=== PATIENT | male | born 1960 | race Hispanic/Latino ===

== ENCOUNTER → 2017-07-14 | Outpatient (CLI) | payer MEDICARE, OTHER ==
[~2017-07-14] MED LIST: ASPI-891 PO; CARV3.12 PO; CLOP75TA14 PO; GABA-531 PO; HYDR-4153 PO; LEVO150T11 PO; LISI-613 PO; OMEG300C3 PO; ROSU10TA PO
== END | disposition home or self-care (01) ==
LOC: SHCH 10:25
PROVIDERS: ATTEND Internal Medicine Cardiovascular Disease
DX: I73.9 Peripheral vascular disease, unspecified (principal)
CPT/HCPCS: 93925

== ENCOUNTER → 2018-04-06 | Outpatient (CLI) | payer OTHER | END | disposition home or self-care (01) | LOC: SHCH 09:47 | PROVIDERS: ATTEND Internal Medicine Cardiovascular Disease | DX: R09.89 Other specified symptoms and signs involving the circulatory and respiratory systems (principal); Z72.89 Other problems related to lifestyle | CPT/HCPCS: 93880 ==

== ENCOUNTER → 2018-12-21 | Outpatient (CLI) | payer OTHER ==
[~2018-12-21] MED LIST changes: -ROSU10TA PO; +ROSU10TA22 PO
== END | disposition home or self-care (01) ==
LOC: SHCH 16:12
PROVIDERS: ATTEND Internal Medicine Cardiovascular Disease
DX: I11.9 Hypertensive heart disease without heart failure (principal); I08.0 Rheumatic disorders of both mitral and aortic valves
CPT/HCPCS: 93306

== ENCOUNTER → 2019-07-23 | Outpatient (CLI) | payer OTHER, MEDICARE | END | disposition home or self-care (01) | LOC: OIH 10:30 | PROVIDERS: ATTEND Internal Medicine | DX: M19.071 Primary osteoarthritis, right ankle and foot (principal); M19.072 Primary osteoarthritis, left ankle and foot; M19.041 Primary osteoarthritis, right hand; M19.042 Primary osteoarthritis, left hand; M20.12 Hallux valgus (acquired), left foot; M20.11 Hallux valgus (acquired), right foot; M20.42 Other hammer toe(s) (acquired), left foot; M20.41 Other hammer toe(s) (acquired), right foot | CPT/HCPCS: 73130; 73630 ==

== ENCOUNTER → 2019-10-08 | Outpatient (CLI) | payer OTHER, MEDICARE | END | disposition home or self-care (01) | LOC: RAH 11:11 | PROVIDERS: ATTEND Internal Medicine Cardiovascular Disease | DX: R22.32 Localized swelling, mass and lump, left upper limb (principal); Z95.0 Presence of cardiac pacemaker | CPT/HCPCS: 93971 ==

== ENCOUNTER 2019-10-10 13:03 | Inpatient (IN) | payer OTHER, MEDICARE ==
[~2019-10-10] VITALS: Ht 170.2 cm; Wt 85.1 kg
[2019-10-10 13:40] LABS: BASOPHILS % (AUTO) 0.2 % (0.0-5.0); EOSINOPHILS % (AUTO) 0.4 % (0.0-8.0); HEMATOCRIT 30.7 % (42-54); LYMPHOCYTES % (AUTO) 3.4 % (21.0-51.0); MEAN CORPUSCULAR HEMOGLOBIN 33.1 pg (27.0-33.0); MEAN CORPUSCULAR HGB CONC 35.2 g/dL (32.0-36.0); MEAN CORPUSCULAR VOLUME 94.2 fL (79-99); MONOCYTES % (AUTO) 10.7 % (3.0-13.0); NEUTROPHILS % (AUTO) 84.7 % (40.0-77.0); PLATELET COUNT (AUTO) 163 K/uL (130-400); RED BLOOD CELL COUNT(AUTO) 3.26 MIL/uL (4.50-6.20); RED CELL DISTRIBUTION WIDTH 16.3 % (11.0-15.5); WHITE BLOOD COUNT (AUTO) 16.4 K/uL (4.8-10.8)
[2019-10-10 13:47] LABS: INR 1.08 (0.85-1.15); PARTIAL THROMBOPLASTIN TIME 54.2 SEC (26.3-35.5); PROTHROMBIN TIME 11.6 SEC (9.6-11.6)
[2019-10-10 13:53] LABS: CREATININE 1.5 mg/dL (0.5-1.5); POTASSIUM 3.3 mmol/L (3.5-5.1)
[2019-10-10 14:05] LABS: BILIRUBIN,TOTAL 0.6 mg/dL (0.2-1.0)
[2019-10-10 14:08] LABS: ALBUMIN 2.2 g/dL (3.5-5.0)
[2019-10-10] MEDS ORDERED: CEFTRIAXONE SODIUM 2 GM VIAL ONE (14:28)
[2019-10-10 14:59] LABS: RAPID GROUP A STREP NEGATIVE (NEGATIVE)
[2019-10-10 15:38] LABS: APPEARANCE,URINE Clear (CLEAR); BILIRUBIN,URINE Negative (NEGATIVE); COLOR,URINE Yellow (YELLOW); GLUCOSE, URINE (UA) Negative (NEGATIVE); KETONES,URINE Negative (NEGATIVE); LEUKOCYTE ESTERASE ,URINE Negative (NEGATIVE); NITRATE,URINE Negative (NEGATIVE); OCCULT BLOOD,URINE Trace (NEGATIVE); PROTEIN,URINE Trace mg/dL (NEGATIVE)
[2019-10-10 15:55] LABS: BACTERIA,URINE Rare /HPF (None Seen); MUCUS,URINE Few LPF (None Seen); SQUAMOUS EPITHELIAL CELL,UR Few /HPF (0-2); WBC,URINE 0-1 /HPF (0-1)
[2019-10-10] MEDS ORDERED: ACETAMINOPHEN EXTRA STRENGTH 500 MG TABLET ONE (18:39)
[2019-10-10] MEDS ORDERED: METRONIDAZOLE 500MG/100ML BAG 100 ML ONE (18:39)
[2019-10-10] MEDS ORDERED: ACETAMINOPHEN 325 MG TAB PO PRN (20:00)
[2019-10-10] MEDS ORDERED: ONDANSETRON HCL 4 MG/2 ML VIAL IVP PRN (20:00)
[2019-10-11] MEDS ORDERED: ZOLPIDEM TARTRATE 5 MG TAB ONE (01:38)
[2019-10-11 02:35] VITALS: BP 115/71
--- NOTE | 2019-10-11 03:25 | NUR ---
NOTE 0258 PATIENT IS HAVING PAIN ON BACK, CRAMPING ON ABDOMEN, AND PAIN ON LEFT ARM AND SHOULDER FROM A FALL 2 WEEKS AGO. PAIN BECOMES SEVERE WITH ANY MOVEMENT. PAGED BENCHMARK FELT CHECKER. RADHA GONZALES COSMETIC MANAGER TO RETURN CALL PER ANSWERING SERVICE. 0325 CONTACTED ANSWERING SERVICE NO CALL BACK RECEIVED. 0335 RECEIVED CALL FROM Jordi GONZALES COSMETIC MANAGER INFORMED OF ABOVE. ORDERS RECEIVED FOR MORPHINE 2MG IV Q4HRS PRN X3 DOSES. INFORMED PATIENT OF NEW ORDERS.
[2019-10-11] MEDS: MORPHINE SULFATE 2 MG/ML 1ML SYG IVP PRN (03:43)
[2019-10-11 04:16] VITALS: BP 101/65
--- NOTE | 2019-10-11 07:00 | NUR ---
NOTE 0606 PAGED BENCHMARK ONCALL VIA ANSWERING SERVICE TO NOTIFY OF BLOOD CULTURE RESULTS AND PATIENT'S RECURRING PAIN. 0635 NO CALL BACK YET. CONTACTED ANSWERING SERVICE. RADHA GONZALES LOBSTER CATCHER SENIOR EDITOR WILL BE PAGED AGAIN. 0700 REPORT GIVEN TO DAY NURSE PREETI VALERO. NO CALL BACK YET FROM LOBSTER CATCHER.
[2019-10-11] MEDS: LACTATED RINGERS 1000ML 1,000 ML IV SCH ×2 (07:45→16:59)
[2019-10-11 09:15] VITALS: BP 101/66
[2019-10-11] MEDS ORDERED: POTASSIUM CHLORIDE 20 MEQ ERTAB PO ONE (09:49)
[2019-10-11] MEDS: METRONIDAZOLE 500 MG TABLET PO SCH ×3 (09:50→22:46)
[2019-10-11 11:23] VITALS: BP 112/68
[2019-10-11] MEDS ORDERED: VANCOMYCIN PROTOCOL PER PHARMACY IV SCH (13:15)
[2019-10-11] MEDS ORDERED: COMPOUND IV REFRIGERATED 1 EACH IVSOLN MISC PRN (13:30)
[2019-10-11] MEDS ORDERED: VANCOMYCIN 1.25 GM in SODIUM CHLORIDE 0.9% 250 ML IV SCH (14:00)
--- NOTE | 2019-10-11 14:23 | NUR ---
DCP CM met with pt discussed dc plans. Pt is independent prior to admission, lives at home alone, sister Keyana Oswald [phone] lives close by. Pt has a cane, provider 4hrs/day. Denies any other equipments/services. Feels safe to go back home, sister able to assist with transportation and needs as necessary. DC plan to home once stable. CM to cont to followup. Addendum: 10/11/19 at 1427 by LEONIDAS AMARAL LVN CM Amended: Links added.
[2019-10-11] MEDS ORDERED: LEVOFLOXACIN 500 MG/D5W 100 ML 100 ML IV SCH (14:30)
[2019-10-11] MEDS ORDERED: LACTULOSE 20 GM/30 ML UDCUP PO PRN (14:30)
[2019-10-11] MEDS ORDERED: GLUCAGON 1MG KIT 1 MG ML IM PRN (15:30)
[2019-10-11] MEDS ORDERED: MAGNESIUM 2GM PREMIX 50ML 50 ML IV PRN (15:30)
[2019-10-11] MEDS ORDERED: LIDOCAINE HCL-MPF 1% 2ML VIAL IV PRN (15:30)
[2019-10-11] MEDS ORDERED: DEXTROSE 50%-WATER 50 ML DISP.SYRIN IV PRN (15:30)
[2019-10-11] MEDS ORDERED: POTASSIUM CHLORIDE 10% ELIXIR 20 MEQ/15 ML UDCUP PO PRN (15:30)
[2019-10-11] MEDS: INSULIN HUMULIN R 100 UNIT/ML 3ML SQ SCH ×2 (16:30→21:00)
[2019-10-11 16:38] VITALS: BP 116/61
[2019-10-11] MEDS ORDERED: LEVO100 PO (18:16)
[2019-10-11] MEDS ORDERED: CLOP75TA32 PO (18:16)
[2019-10-11] MEDS ORDERED: POTA10TA19 PO (18:16)
[2019-10-11] MEDS ORDERED: APIX5TAB PO (18:16)
[2019-10-11] MEDS ORDERED: VERA240C3 PO (18:16)
[2019-10-11] MEDS ORDERED: FURO40TA5 PO (18:16)
[2019-10-11] MEDS ORDERED: AMIO200T6 PO (18:16)
[2019-10-11] MEDS ORDERED: FAMO40TA7 PO (18:16)
[2019-10-11 19:00] VITALS: BP 116/62
[2019-10-11] MEDS ORDERED: HYDRALAZINE HCL 25 MG TABLET PO SCH (21:00)
[2019-10-11] MEDS ORDERED: CARVEDILOL 3.125 MG TABLET PO SCH (21:00)
[2019-10-11] MEDS ORDERED: LISINOPRIL 20 MG TABLET PO SCH (21:00)
[2019-10-11] MEDS ORDERED: GABAPENTIN 300 MG CAPSULE PO SCH (21:00)
[2019-10-11] MEDS ORDERED: ATORVASTATIN CALCIUM 20 MG TABLET PO SCH (21:00)
[2019-10-11] MEDS ORDERED: METRONIDAZOLE 500 MG TABLET PO SCH (21:00)
[2019-10-11] MEDS: ZOLPIDEM TARTRATE 5 MG TAB PO PRN (22:46)
[2019-10-11] MEDS: FAMOTIDINE 20MG TAB 20 MG TAB PO SCH (22:46)
[2019-10-11] MEDS: APIXABAN 5 MG TABLET PO SCH (22:47)
[2019-10-12] VITALS: BP 135/73
[2019-10-12 04:00] VITALS: BP 149/70
[2019-10-12] MEDS ORDERED: ACETAMINOPHEN 325 MG TAB ONE (04:01)
[2019-10-12] MEDS: ACETAMINOPHEN 325 MG TAB PO PRN ×2 (04:21→20:49)
[2019-10-12 04:58] LABS: BASOPHILS % (AUTO) 0.3 % (0.0-5.0); EOSINOPHILS % (AUTO) 0.1 % (0.0-8.0); HEMATOCRIT 29.6 % (42-54); LYMPHOCYTES % (AUTO) 2.6 % (21.0-51.0); MEAN CORPUSCULAR HEMOGLOBIN 32.4 pg (27.0-33.0); MEAN CORPUSCULAR HGB CONC 35.1 g/dL (32.0-36.0); MEAN CORPUSCULAR VOLUME 92.2 fL (79-99); MONOCYTES % (AUTO) 10.2 % (3.0-13.0); NEUTROPHILS % (AUTO) 84.1 % (40.0-77.0); PLATELET COUNT (AUTO) 138 K/uL (130-400); RED BLOOD CELL COUNT(AUTO) 3.21 MIL/uL (4.50-6.20); RED CELL DISTRIBUTION WIDTH 16.3 % (11.0-15.5); WHITE BLOOD COUNT (AUTO) 11.6 K/uL (4.8-10.8)
[2019-10-12 05:25] LABS: ALBUMIN 1.7 g/dL (3.5-5.0); BILIRUBIN,DIRECT 0.2 mg/dL (0.0-0.3); BILIRUBIN,TOTAL 0.5 mg/dL (0.2-1.0); CREATININE 1.1 mg/dL (0.5-1.5); MAGNESIUM 2.1 mg/dL (1.80-2.40); PHOSPHORUS 2.2 mg/dL (2.5-4.9); POTASSIUM 3.4 mmol/L (3.5-5.1); TOTAL PROTEIN, SERUM 5.9 g/dL (6.0-8.3)
[2019-10-12] MEDS ORDERED: LEVOTHYROXINE 150 MCG TABLET PO SCH (06:30)
[2019-10-12] MEDS: LEVOTHYROXINE 100 MCG TABLET PO SCH (07:00)
[2019-10-12 07:30] VITALS: BP 133/71
[2019-10-12] MEDS: INSULIN HUMULIN R 100 UNIT/ML 3ML SQ SCH ×4 (07:30→20:50)
[2019-10-12] MEDS: POTASSIUM CHLORIDE 10 MEQ/TAB.SA PO SCH (08:21)
[2019-10-12] MEDS: CLOPIDOGREL BISULFATE 75 MG TAB PO SCH (08:21)
[2019-10-12] MEDS: FUROSEMIDE 20 MG TABLET PO SCH (08:22)
[2019-10-12] MEDS: AMIODARONE HCL 200 MG TABLET PO SCH (08:22)
[2019-10-12] MEDS: METRONIDAZOLE 500 MG TABLET PO SCH ×3 (08:22→20:50)
[2019-10-12] MEDS: APIXABAN 5 MG TABLET PO SCH ×2 (08:22→20:50)
[2019-10-12] MEDS: PANTOPRAZOLE SODIUM 40 MG TABLET.DR PO SCH (08:22)
[2019-10-12] MEDS: VERAPAMIL HCL 240 MG SRTAB PO SCH (08:22)
[2019-10-12] MEDS ORDERED: CLOPIDOGREL BISULFATE 75 MG TAB PO SCH (09:00)
[2019-10-12] MEDS ORDERED: FISH OIL 1000 MG/CAP PO SCH (09:00)
[2019-10-12] MEDS ORDERED: ASPIRIN 325MG EC TAB 325 MG TABLET.DR PO SCH (09:00)
[2019-10-12] MEDS ORDERED: NAFCILLIN 2GM+ NS 100ML IV SCH (12:15)
[2019-10-12 12:28] VITALS: BP 108/66
[2019-10-12] MEDS: NAFCILLIN 2GM+ NS 100ML 100 ML IV SCH ×3 (13:44→20:50)
[2019-10-12] MEDS: POTASSIUM CHLORIDE 20 MEQ ERTAB PO PRN ×2 (15:29→17:05)
[2019-10-12 16:00] VITALS: BP 103/57
--- NOTE | 2019-10-12 16:31 | NUR ---
1513 received oral consent for IM Letter since patient is on contact/droplet isolation. I faxed IM Letter to [phone] and placed in chart under consent tab.
[2019-10-12 19:32] VITALS: BP 107/86
[2019-10-12] MEDS: ZOLPIDEM TARTRATE 5 MG TAB PO PRN (20:48)
[2019-10-12] MEDS: FAMOTIDINE 20MG TAB 20 MG TAB PO SCH (20:50)
[2019-10-13] VITALS (7 sets, daily range): BP systolic 102–144; BP diastolic 61–79
[2019-10-13] MEDS: NAFCILLIN 2GM+ NS 100ML 100 ML IV SCH ×7 (00:08→23:47)
[2019-10-13 05:14] LABS: HEMATOCRIT 33.3 % (42-54); MEAN CORPUSCULAR HEMOGLOBIN 32.9 pg (27.0-33.0); MEAN CORPUSCULAR HGB CONC 33.9 g/dL (32.0-36.0); MEAN CORPUSCULAR VOLUME 97.1 fL (79-99); RED BLOOD CELL COUNT(AUTO) 3.43 MIL/uL (4.50-6.20); RED CELL DISTRIBUTION WIDTH 17.1 % (11.0-15.5); WHITE BLOOD COUNT (AUTO) 15.1 K/uL (4.8-10.8)
[2019-10-13 05:35] LABS: POTASSIUM 4.2 mmol/L (3.5-5.1)
[2019-10-13] MEDS: INSULIN HUMULIN R 100 UNIT/ML 3ML SQ SCH ×4 (07:08→21:00)
[2019-10-13] MEDS: AMIODARONE HCL 200 MG TABLET PO SCH (09:40)
[2019-10-13] MEDS: APIXABAN 5 MG TABLET PO SCH ×2 (09:41→21:14)
[2019-10-13] MEDS: VERAPAMIL HCL 240 MG SRTAB PO SCH (09:41)
[2019-10-13] MEDS: LEVOTHYROXINE 100 MCG TABLET PO SCH (09:41)
[2019-10-13] MEDS: FUROSEMIDE 20 MG TABLET PO SCH (09:41)
[2019-10-13] MEDS: POTASSIUM CHLORIDE 10 MEQ/TAB.SA PO SCH (09:41)
[2019-10-13] MEDS: CLOPIDOGREL BISULFATE 75 MG TAB PO SCH (09:42)
[2019-10-13] MEDS: METRONIDAZOLE 500 MG TABLET PO SCH ×3 (09:42→21:14)
[2019-10-13] MEDS: PANTOPRAZOLE SODIUM 40 MG TABLET.DR PO SCH (09:42)
[2019-10-13 13:52] LABS: INR 1.09 (0.85-1.15); PROTHROMBIN TIME 11.7 SEC (9.6-11.6)
[2019-10-13] MEDS: ZOLPIDEM TARTRATE 5 MG TAB PO PRN (21:14)
[2019-10-13] MEDS: FAMOTIDINE 20MG TAB 20 MG TAB PO SCH (21:15)
[2019-10-13] MEDS: ACETAMINOPHEN 325 MG TAB PO PRN (21:15)
[2019-10-14 03:39] VITALS: BP 172/88
[2019-10-14] MEDS: NAFCILLIN 2GM+ NS 100ML 100 ML IV SCH ×6 (04:26→23:36)
[2019-10-14 06:08] LABS: HEMATOCRIT 28.5 % (42-54); MEAN CORPUSCULAR HEMOGLOBIN 33.1 pg (27.0-33.0); MEAN CORPUSCULAR HGB CONC 35.4 g/dL (32.0-36.0); MEAN CORPUSCULAR VOLUME 93.4 fL (79-99); RED BLOOD CELL COUNT(AUTO) 3.05 MIL/uL (4.50-6.20); RED CELL DISTRIBUTION WIDTH 16.8 % (11.0-15.5); WHITE BLOOD COUNT (AUTO) 14.3 K/uL (4.8-10.8)
[2019-10-14 06:23] LABS: CREATININE 1.1 mg/dL (0.5-1.5); MAGNESIUM 1.8 mg/dL (1.80-2.40); PHOSPHORUS 3.4 mg/dL (2.5-4.9); POTASSIUM 3.3 mmol/L (3.5-5.1)
[2019-10-14] MEDS: INSULIN HUMULIN R 100 UNIT/ML 3ML SQ SCH ×4 (07:30→20:14)
[2019-10-14 08:08] VITALS: BP 162/72
[2019-10-14] MEDS: CLOPIDOGREL BISULFATE 75 MG TAB PO SCH (08:29)
[2019-10-14] MEDS: FUROSEMIDE 20 MG TABLET PO SCH (08:29)
[2019-10-14] MEDS: METRONIDAZOLE 500 MG TABLET PO SCH ×3 (08:30→20:19)
[2019-10-14] MEDS: LEVOTHYROXINE 100 MCG TABLET PO SCH (08:30)
[2019-10-14] MEDS: AMIODARONE HCL 200 MG TABLET PO SCH (08:30)
[2019-10-14] MEDS: VERAPAMIL HCL 240 MG SRTAB PO SCH (08:30)
[2019-10-14] MEDS: POTASSIUM CHLORIDE 10 MEQ/TAB.SA PO SCH (08:30)
[2019-10-14] MEDS: APIXABAN 5 MG TABLET PO SCH ×2 (08:30→20:19)
[2019-10-14] MEDS: PANTOPRAZOLE SODIUM 40 MG TABLET.DR PO SCH (08:30)
[2019-10-14] MEDS ORDERED: PHARMACY COMMUNICATION MISC SCH ×2 (10:45→11:30)
[2019-10-14 10:54] VITALS: BP 146/71
[2019-10-14] MEDS ORDERED: DORZ10DR19 OU (11:20)
[2019-10-14] MEDS ORDERED: SECU150S2 SQ (11:20)
[2019-10-14] MEDS ORDERED: LATA2.5D2 OU (11:20)
[2019-10-14] MEDS: ACETAMINOPHEN 325 MG TAB PO PRN (12:18)
[2019-10-14] MEDS ORDERED: GENTAMICIN PROTOCOL PER PHARMACY IV SCH (12:30)
[2019-10-14] MEDS ORDERED: COMPOUND IV REFRIGERATED 1 EACH IVSOLN MISC PRN (12:30)
[2019-10-14] MEDS ORDERED: SODIUM CHLORIDE 0.9% IV SCH (13:00)
[2019-10-14] MEDS ORDERED: GENTAMICIN SULFATE IV SCH (13:00)
[2019-10-14 16:16] VITALS: BP 146/84
[2019-10-14 19:12] VITALS: BP 127/67
[2019-10-14] MEDS: LATANOPROST 2.5 ML DROPS OU SCH (20:18)
[2019-10-14] MEDS: FAMOTIDINE 20MG TAB 20 MG TAB PO SCH (20:18)
[2019-10-14] MEDS: ZOLPIDEM TARTRATE 5 MG TAB PO PRN (20:22)
[2019-10-14] MEDS: GENTAMICIN SULFATE IV SCH ×2 (23:00→23:23)
[2019-10-14] MEDS: SODIUM CHLORIDE 0.9% IV SCH ×2 (23:00→23:23)
[2019-10-14 23:06] VITALS: BP 137/80
[2019-10-14] MEDS: MORPHINE SULFATE 2 MG/ML 1ML SYG IVP PRN (23:37)
[2019-10-15] MEDS: NAFCILLIN 2GM+ NS 100ML 100 ML IV SCH ×6 (03:05→23:50)
[2019-10-15] MEDS: ACETAMINOPHEN 325 MG TAB PO PRN ×2 (03:05→18:04)
[2019-10-15 03:35] VITALS: BP 130/72
[2019-10-15 04:40] LABS: HEMATOCRIT 27.2 % (42-54); MEAN CORPUSCULAR HEMOGLOBIN 32.3 pg (27.0-33.0); MEAN CORPUSCULAR HGB CONC 34.6 g/dL (32.0-36.0); MEAN CORPUSCULAR VOLUME 93.5 fL (79-99); RED BLOOD CELL COUNT(AUTO) 2.91 MIL/uL (4.50-6.20); RED CELL DISTRIBUTION WIDTH 16.8 % (11.0-15.5); WHITE BLOOD COUNT (AUTO) 14.9 K/uL (4.8-10.8)
[2019-10-15 04:49] LABS: CREATININE 1.3 mg/dL (0.5-1.5); POTASSIUM 3.1 mmol/L (3.5-5.1)
[2019-10-15] MEDS: POTASSIUM CHLORIDE 20MEQ/100ML 100 ML IV PRN (05:08)
[2019-10-15] MEDS: LEVOTHYROXINE 100 MCG TABLET PO SCH (05:08)
[2019-10-15] MEDS: INSULIN HUMULIN R 100 UNIT/ML 3ML SQ SCH ×4 (05:28→20:15)
[2019-10-15] MEDS: GENTAMICIN SULFATE IV SCH ×3 (06:41→23:04)
[2019-10-15] MEDS: SODIUM CHLORIDE 0.9% IV SCH ×3 (06:41→23:04)
[2019-10-15 08:00] VITALS: BP 136/87
[2019-10-15] MEDS: DORZOLAMIDE HCL 2% 10ML DROPS OU SCH (08:15)
[2019-10-15] MEDS: MORPHINE SULFATE 2 MG/ML 1ML SYG IVP PRN (08:15)
[2019-10-15] MEDS: FUROSEMIDE 20 MG TABLET PO SCH (08:16)
[2019-10-15] MEDS: APIXABAN 5 MG TABLET PO SCH ×2 (08:16→19:23)
[2019-10-15] MEDS: VERAPAMIL HCL 240 MG SRTAB PO SCH (08:16)
[2019-10-15] MEDS: AMIODARONE HCL 200 MG TABLET PO SCH (08:16)
[2019-10-15] MEDS: PANTOPRAZOLE SODIUM 40 MG TABLET.DR PO SCH (08:16)
[2019-10-15] MEDS: POTASSIUM CHLORIDE 10 MEQ/TAB.SA PO SCH (08:17)
[2019-10-15] MEDS: CLOPIDOGREL BISULFATE 75 MG TAB PO SCH (08:17)
[2019-10-15] MEDS: POTASSIUM CHLORIDE 20 MEQ ERTAB PO PRN (08:19)
[2019-10-15] MEDS: METRONIDAZOLE 500 MG TABLET PO SCH ×3 (08:19→19:23)
[2019-10-15 12:00] VITALS: BP 125/78
--- NOTE | 2019-10-15 15:00 | NUR ---
HAD NOTIFIED MARILYN [facility] HERIBERTO DE ASKING ON POSSIBLE REEVALUATION OF PACEMAKER . PER MARILYN will need abx for a while before intervention
[2019-10-15 16:00] VITALS: BP 126/75
--- NOTE | 2019-10-15 17:00 | NUR ---
NOTIFIED HERIBERTO DE ON PATIENT AND SISTER CONCERN FOR CONTINUOUS HEADACHES FOR 4 MONTHS AND REQUESTING POSSIBLE FURTHER EVALUATION . NO NEW ORDER AT THIS TIME ..
[2019-10-15] MEDS: FAMOTIDINE 20MG TAB 20 MG TAB PO SCH (19:22)
[2019-10-15] MEDS: ZOLPIDEM TARTRATE 5 MG TAB PO PRN (19:23)
[2019-10-15] MEDS: LATANOPROST 2.5 ML DROPS OU SCH (19:23)
[2019-10-15 20:12] VITALS: BP 138/60
[2019-10-15] MEDS ORDERED: DIPHENHYDRAMINE HCL 25 MG CAPSULE PO PRN (21:00)
[2019-10-16 00:16] VITALS: BP 166/78
[2019-10-16] MEDS: NAFCILLIN 2GM+ NS 100ML 100 ML IV SCH ×5 (03:43→20:39)
[2019-10-16 04:16] VITALS: BP 152/77
[2019-10-16] MEDS: INSULIN HUMULIN R 100 UNIT/ML 3ML SQ SCH ×4 (06:23→20:40)
[2019-10-16 06:25] LABS: HEMATOCRIT 26.9 % (42-54); MEAN CORPUSCULAR HEMOGLOBIN 32.1 pg (27.0-33.0); MEAN CORPUSCULAR HGB CONC 34.2 g/dL (32.0-36.0); MEAN CORPUSCULAR VOLUME 93.7 fL (79-99); RED BLOOD CELL COUNT(AUTO) 2.87 MIL/uL (4.50-6.20); WHITE BLOOD COUNT (AUTO) 14.3 K/uL (4.8-10.8)
[2019-10-16 06:37] LABS: CREATININE 1.6 mg/dL (0.5-1.5); MAGNESIUM 1.7 mg/dL (1.80-2.40); PHOSPHORUS 3.2 mg/dL (2.5-4.9)
--- NOTE | 2019-10-16 07:32 | NUR ---
SPOKE WITH NOLA FROM PHARMACY NEEDING 0700 DOSE OF GARAMYCIN . WILL DELIVER SOON .
[2019-10-16] MEDS: SODIUM CHLORIDE 0.9% IV SCH ×3 (07:51→23:08)
[2019-10-16] MEDS: GENTAMICIN SULFATE IV SCH ×3 (07:51→23:08)
[2019-10-16 08:00] VITALS: BP 120/80
[2019-10-16] MEDS: DORZOLAMIDE HCL 2% 10ML DROPS OU SCH (09:00)
[2019-10-16] MEDS: POTASSIUM CHLORIDE 10 MEQ/TAB.SA PO SCH (09:08)
[2019-10-16] MEDS: VERAPAMIL HCL 240 MG SRTAB PO SCH (09:08)
[2019-10-16] MEDS: AMIODARONE HCL 200 MG TABLET PO SCH (09:08)
[2019-10-16] MEDS: APIXABAN 5 MG TABLET PO SCH ×2 (09:08→20:40)
[2019-10-16] MEDS: PANTOPRAZOLE SODIUM 40 MG TABLET.DR PO SCH (09:09)
[2019-10-16] MEDS: FUROSEMIDE 20 MG TABLET PO SCH (09:09)
[2019-10-16] MEDS: POTASSIUM CHLORIDE 20 MEQ ERTAB PO PRN ×3 (09:09→16:55)
[2019-10-16] MEDS: CLOPIDOGREL BISULFATE 75 MG TAB PO SCH (09:09)
[2019-10-16] MEDS: LEVOTHYROXINE 100 MCG TABLET PO SCH (09:10)
[2019-10-16] MEDS: METRONIDAZOLE 500 MG TABLET PO SCH ×3 (09:12→20:40)
[2019-10-16 11:51] VITALS: BP 118/66
[2019-10-16 16:00] VITALS: BP 130/68
--- NOTE | 2019-10-16 16:00 | NUR ---
NOTIFIED DR GROVES REGARDING SPEAKING WITH [facility] AND HER STATING THEY WONT DO AN MRI WITH ANY PACEMAKER EVEN IF IT MIGHT BE COMPATIBLE,GANTRY RIGGER WHO PLACED IT WILL HAVE TO FILL OUT AN APPROVAL FORM ,A CONSENT PACEMAKER REP AND A NURSE WILL NEED TO BE PRESENT .NO NEW ORDERS AT THIS TIME .ALSO NOTIFIED CHARGE NURSE TAMMY ON ISSUE . STATED MRI DEPT WILL NOT DO TEST DUE TO PACEMAKER EVEN IF COMPATIBLE DUE TO RISKS .
[2019-10-16 19:00] VITALS: BP 145/68
[2019-10-16] MEDS: LATANOPROST 2.5 ML DROPS OU SCH (20:39)
[2019-10-16] MEDS: FAMOTIDINE 20MG TAB 20 MG TAB PO SCH (20:39)
[2019-10-16] MEDS: ZOLPIDEM TARTRATE 5 MG TAB PO PRN (21:07)
[2019-10-16] MEDS ORDERED: CHLORDIAZEPOXIDE HCL 25 MG CAP PO ONE (22:00)
[2019-10-16] MEDS ORDERED: PHARMACY COMMUNICATION MISC PRN (22:00)
[2019-10-16] MEDS ORDERED: LORAZEPAM 2 MG/ML 1 ML VIAL IVP PRN (22:00)
[2019-10-16] MEDS ORDERED: CHLORDIAZEPOXIDE HCL 25 MG CAP PO PRN (22:00)
[2019-10-16] MEDS: NICOTINE 21 MG/ 24 HR PATCH TD SCH (22:49)
[2019-10-17] VITALS (7 sets, daily range): BP systolic 122–156; BP diastolic 62–98
[2019-10-17] MEDS: NAFCILLIN 2GM+ NS 100ML 100 ML IV SCH ×7 (01:07→23:06)
[2019-10-17] MEDS: POTASSIUM CHLORIDE 20 MEQ ERTAB PO PRN ×5 (06:24→16:47)
[2019-10-17] MEDS: LEVOTHYROXINE 100 MCG TABLET PO SCH (06:24)
[2019-10-17] MEDS: INSULIN HUMULIN R 100 UNIT/ML 3ML SQ SCH ×4 (06:25→20:51)
[2019-10-17] MEDS: SODIUM CHLORIDE 0.9% IV SCH ×3 (06:25→23:05)
[2019-10-17] MEDS: GENTAMICIN SULFATE IV SCH ×3 (06:25→23:05)
[2019-10-17 06:38] LABS: BASOPHILS % (AUTO) 0.3 % (0.0-5.0); EOSINOPHILS % (AUTO) 4.7 % (0.0-8.0); HEMATOCRIT 25.8 % (42-54); LYMPHOCYTES % (AUTO) 5.5 % (21.0-51.0); MEAN CORPUSCULAR HEMOGLOBIN 32.6 pg (27.0-33.0); MEAN CORPUSCULAR HGB CONC 34.1 g/dL (32.0-36.0); MEAN CORPUSCULAR VOLUME 95.6 fL (79-99); MONOCYTES % (AUTO) 8.6 % (3.0-13.0); NEUTROPHILS % (AUTO) 78.9 % (40.0-77.0); PLATELET COUNT (AUTO) 398 K/uL (130-400); RED CELL DISTRIBUTION WIDTH 17.3 % (11.0-15.5); WHITE BLOOD COUNT (AUTO) 14.7 K/uL (4.8-10.8)
[2019-10-17 07:00] LABS: ALBUMIN 1.4 g/dL (3.5-5.0); BILIRUBIN,TOTAL 0.7 mg/dL (0.2-1.0); CREATININE 1.4 mg/dL (0.5-1.5); THYROID STIMULATING HORMONE 1.89 uIU/mL (0.36-3.74); TOTAL PROTEIN, SERUM 5.7 g/dL (6.0-8.3)
[2019-10-17 07:02] LABS: B-TYPE NATRIURETIC PEPTIDE 669 pg/mL (0-100)
[2019-10-17] MEDS: METRONIDAZOLE 500 MG TABLET PO SCH ×3 (08:45→20:57)
[2019-10-17] MEDS: APIXABAN 5 MG TABLET PO SCH ×2 (08:45→20:58)
[2019-10-17] MEDS: FUROSEMIDE 20 MG TABLET PO SCH (08:45)
[2019-10-17] MEDS: PANTOPRAZOLE SODIUM 40 MG TABLET.DR PO SCH (08:45)
[2019-10-17] MEDS: VERAPAMIL HCL 240 MG SRTAB PO SCH (08:46)
[2019-10-17] MEDS: DORZOLAMIDE HCL 2% 10ML DROPS OU SCH (08:46)
[2019-10-17] MEDS: CLOPIDOGREL BISULFATE 75 MG TAB PO SCH (08:47)
[2019-10-17] MEDS: AMIODARONE HCL 200 MG TABLET PO SCH (08:47)
[2019-10-17] MEDS: NICOTINE 21 MG/ 24 HR PATCH TD SCH (08:48)
[2019-10-17] MEDS: POTASSIUM CHLORIDE 10 MEQ/TAB.SA PO SCH (09:00)
[2019-10-17] MEDS: FLUTICASONE PROPIONATE 50MCG/SPRAY 16 GM BOTTLE EN SCH (09:00)
[2019-10-17] MEDS: POTASSIUM CHLORIDE 20MEQ/100ML 100 ML IV PRN (09:25)
--- NOTE | 2019-10-17 11:18 | NUR ---
DC TELEVISION NEWS PHOTOGRAPHER [facility] FOR [facility] CALLED SAID PATIENT IS ACCEPTED. LET NURSE KNOW. SAID THAT BENCHMARK STILL DEBATING RE CONSULTING CARDIO FOR POSSIBLE PACEMAKER REMOVAL. Addendum: 10/17/19 at 1121 by SHANDA HERCULES RN CM Amended: Links added.
[2019-10-17] MEDS ORDERED: LIDOCAINE HCL MPF 1% 5ML VIAL ONE (15:15)
--- NOTE | 2019-10-17 15:45 | NUR ---
YOGESH FOX SPOKE TO YOGESH FOX FOR DR. TERESITA DE JESUS. INFORMED HIM THAT DR. CRUZ WANTS TO RECONSULT WITH CARDIOLOGY FOR PACEMAKER REMOVAL BECAUSE OF PERSISTENT BACTEREMIA. INFORMED YOGESH FOX OF BLOOD CULTURE RESULTS FROM 10/10/19, 10/13/19, AND 10/16/19.
[2019-10-17] MEDS: METHYLPREDNISOLONE SOD SUCC 125MG/2ML VIAL IVP SCH ×2 (16:46→23:05)
[2019-10-17] MEDS: ACETAMINOPHEN 325 MG TAB PO PRN (17:11)
--- NOTE | 2019-10-17 17:15 | NUR ---
DR. LAMONTE WOOD HERE TO SEE PATIENT. PERFORMED BEDSIDE RIGHT KNEE ASPIRATION. ASPIRATED APPROXIMATELY 8 ML OF SEROSANGUINEOUS FLUID AND SENT TO LAB FOR TESTING.
[2019-10-17] MEDS: FAMOTIDINE 20MG TAB 20 MG TAB PO SCH (20:57)
[2019-10-17] MEDS ORDERED: ZINC OXIDE OINT 60GM TUBE TP SCH (21:00)
[2019-10-17] MEDS: ZOLPIDEM TARTRATE 5 MG TAB PO PRN (21:06)
[2019-10-17] MEDS: LATANOPROST 2.5 ML DROPS OU SCH (21:07)
[2019-10-18 00:39] LABS: APPEARANCE BODY FLUID BLOODY (CLEAR); COLOR,BODY FLUID RED (LT YELLOW); SPECIMENTYPE,BODY FLUID SYNOVIAL; TOTAL VOLUME,BODY FLUID 10 mL
[2019-10-18 00:41] LABS: BODY FLUID WBC 3247 /cu. mm.
[2019-10-18 00:42] LABS: BODY FLUID RBC 15048 /cu. mm.
[2019-10-18 00:43] LABS: BF BASOPHIL 0 %; BF EOSINOPHIL 0 %; BF LYMPHOCYTE 10 %; BF MONOCYTE 0 %
[2019-10-18 03:32] VITALS: BP 156/87
[2019-10-18] MEDS: NAFCILLIN 2GM+ NS 100ML 100 ML IV SCH ×6 (04:37→23:41)
[2019-10-18] MEDS: GENTAMICIN SULFATE IV SCH ×2 (05:48→23:41)
[2019-10-18] MEDS: METHYLPREDNISOLONE SOD SUCC 125MG/2ML VIAL IVP SCH ×3 (05:48→23:40)
[2019-10-18] MEDS: LEVOTHYROXINE 100 MCG TABLET PO SCH (05:48)
[2019-10-18] MEDS: INSULIN HUMULIN R 100 UNIT/ML 3ML SQ SCH ×4 (05:48→20:36)
[2019-10-18] MEDS: SODIUM CHLORIDE 0.9% IV SCH ×2 (05:48→23:41)
[2019-10-18 06:29] LABS: HEMATOCRIT 28.8 % (42-54); MEAN CORPUSCULAR HEMOGLOBIN 32.7 pg (27.0-33.0); RED CELL DISTRIBUTION WIDTH 17.4 % (11.0-15.5)
[2019-10-18 06:43] LABS: CREATININE 1.5 mg/dL (0.5-1.5); MAGNESIUM 2.1 mg/dL (1.80-2.40); PHOSPHORUS 3.9 mg/dL (2.5-4.9); POTASSIUM 3.8 mmol/L (3.5-5.1)
[2019-10-18 07:06] LABS: THYROID STIMULATING HORMONE 1.13 uIU/mL (0.36-3.74)
[2019-10-18 07:47] VITALS: BP 139/88
[2019-10-18] MEDS: FLUTICASONE PROPIONATE 50MCG/SPRAY 16 GM BOTTLE EN SCH (09:00)
[2019-10-18] MEDS: METRONIDAZOLE 500 MG TABLET PO SCH ×3 (09:27→20:30)
[2019-10-18] MEDS: APIXABAN 5 MG TABLET PO SCH ×2 (09:27→20:30)
[2019-10-18] MEDS: CLOPIDOGREL BISULFATE 75 MG TAB PO SCH (09:27)
[2019-10-18] MEDS: FUROSEMIDE 20 MG TABLET PO SCH (09:28)
[2019-10-18] MEDS: POTASSIUM CHLORIDE 10 MEQ/TAB.SA PO SCH (09:28)
[2019-10-18] MEDS: AMIODARONE HCL 200 MG TABLET PO SCH (09:28)
[2019-10-18] MEDS: VERAPAMIL HCL 240 MG SRTAB PO SCH (09:29)
[2019-10-18] MEDS: NICOTINE 21 MG/ 24 HR PATCH TD SCH (09:29)
[2019-10-18] MEDS: PANTOPRAZOLE SODIUM 40 MG TABLET.DR PO SCH (09:29)
[2019-10-18 09:54] LABS: CRYSTALS, SYNOVIAL FLUID SEE SEPARATE REPORT
[2019-10-18] MEDS: DORZOLAMIDE HCL 2% 10ML DROPS OU SCH (10:52)
[2019-10-18 11:32] VITALS: BP 137/89
--- NOTE | 2019-10-18 15:11 | NUR ---
RD SCREEN - LOS X 8 Pt admitted with Diarrhea - resolved. Pt tolerating Heart Healthy diet order, however Pt reports decreased appetite due to inactivity and meals too close together, i.e. still full from breakfast at lunch time. This leads to poor PO at following meals and Pt not hungry later in day. Noted serum BG 248. Recommend add 75gm CC diet modification Recommend 6 small meals diet modification Recommend 30mL ProMod TID RD to continue to monitor. Please notify as additional nutrition concerns arise. Thank you. Addendum: 10/18/19 at [address] RD Amended: Links added.
[2019-10-18 16:40] VITALS: BP 138/71
--- NOTE | 2019-10-18 17:00 | NUR ---
DR. LASHAWN WOOD HERE TO SEE PATIENT. TOLD PATIENT WOULD TALK TO MRI DIRECTOR IN ORDER FOR LEFT ARM MRI TO BE PERFORMED. TOLD PATIENT THAT AN MRI IS ABLE TO BE DONE WITH TYPE OF PACEMAKER PATIENT HAS.
[2019-10-18 19:23] VITALS: BP 122/64
[2019-10-18] MEDS: ZOLPIDEM TARTRATE 5 MG TAB PO PRN (20:29)
[2019-10-18] MEDS: FAMOTIDINE 20MG TAB 20 MG TAB PO SCH (20:30)
[2019-10-18] MEDS: LATANOPROST 2.5 ML DROPS OU SCH (20:36)
[2019-10-18 23:27] VITALS: BP 149/76
[2019-10-19] MEDS: NAFCILLIN 2GM+ NS 100ML 100 ML IV SCH ×6 (03:52→23:54)
[2019-10-19 04:00] VITALS: BP 141/77
[2019-10-19] MEDS: LEVOTHYROXINE 100 MCG TABLET PO SCH (06:02)
[2019-10-19] MEDS: GENTAMICIN SULFATE IV SCH ×3 (06:03→20:27)
[2019-10-19] MEDS: METHYLPREDNISOLONE SOD SUCC 125MG/2ML VIAL IVP SCH ×3 (06:03→23:28)
[2019-10-19] MEDS: SODIUM CHLORIDE 0.9% IV SCH ×3 (06:03→20:27)
[2019-10-19] MEDS: INSULIN HUMULIN R 100 UNIT/ML 3ML SQ SCH ×4 (06:06→20:36)
[2019-10-19 08:00] VITALS: BP 127/71
[2019-10-19] MEDS: FLUTICASONE PROPIONATE 50MCG/SPRAY 16 GM BOTTLE EN SCH (09:00)
[2019-10-19] MEDS ORDERED: GADODIAMIDE 10 MMOL/20 ML VIAL IV ONE (09:12)
[2019-10-19] MEDS: PANTOPRAZOLE SODIUM 40 MG TABLET.DR PO SCH (09:27)
[2019-10-19] MEDS: METRONIDAZOLE 500 MG TABLET PO SCH ×3 (09:29→20:27)
[2019-10-19] MEDS: CLOPIDOGREL BISULFATE 75 MG TAB PO SCH (09:29)
[2019-10-19] MEDS: NICOTINE 21 MG/ 24 HR PATCH TD SCH (09:29)
[2019-10-19] MEDS: APIXABAN 5 MG TABLET PO SCH ×2 (09:29→20:27)
[2019-10-19] MEDS: FUROSEMIDE 20 MG TABLET PO SCH (09:30)
[2019-10-19] MEDS: AMIODARONE HCL 200 MG TABLET PO SCH (09:30)
[2019-10-19] MEDS: VERAPAMIL HCL 240 MG SRTAB PO SCH (09:30)
[2019-10-19] MEDS: POTASSIUM CHLORIDE 10 MEQ/TAB.SA PO SCH (09:30)
[2019-10-19] MEDS: ACETAMINOPHEN 325 MG TAB PO PRN (09:32)
[2019-10-19] MEDS: DORZOLAMIDE HCL 2% 10ML DROPS OU SCH (09:34)
--- NOTE | 2019-10-19 10:25 | NUR ---
DC PLAN PENDING MRI PLAN TO DC TO [facility]. FORMS IN CHART. Addendum: 10/19/19 at 1026 by SHANDA HERCULES RN CM Amended: Links added.
[2019-10-19 11:00] VITALS: BP 148/94
--- NOTE | 2019-10-19 15:47 | NUR ---
DC PLAN SPOKE TO SERENA GUERRA. SAID WILL BE GOOD TILL TUESDAY. Addendum: 10/19/19 at 1548 by SHANDA HERCULES RN CM Amended: Links added.
[2019-10-19 16:00] VITALS: BP 126/54
[2019-10-19] MEDS: FAMOTIDINE 20MG TAB 20 MG TAB PO SCH (20:27)
[2019-10-19] MEDS: LATANOPROST 2.5 ML DROPS OU SCH (20:28)
[2019-10-19] MEDS: ZOLPIDEM TARTRATE 5 MG TAB PO PRN (20:35)
[2019-10-19 23:57] VITALS: BP 159/84
[2019-10-20 04:00] VITALS: BP 155/80
[2019-10-20] MEDS: NAFCILLIN 2GM+ NS 100ML 100 ML IV SCH ×5 (05:00→20:15)
[2019-10-20] MEDS: LEVOTHYROXINE 100 MCG TABLET PO SCH (05:04)
[2019-10-20 05:25] LABS: HEMATOCRIT 28.6 % (42-54); LYMPHOCYTES % (AUTO) 5.1 % (21.0-51.0); MEAN CORPUSCULAR HEMOGLOBIN 31.7 pg (27.0-33.0); MEAN CORPUSCULAR HGB CONC 33.2 g/dL (32.0-36.0); MEAN CORPUSCULAR VOLUME 95.3 fL (79-99); MONOCYTES % (AUTO) 2.4 % (3.0-13.0); NEUTROPHILS % (AUTO) 91.2 % (40.0-77.0); PLATELET COUNT (AUTO) 575 K/uL (130-400); RED CELL DISTRIBUTION WIDTH 17.2 % (11.0-15.5); WHITE BLOOD COUNT (AUTO) 10.8 K/uL (4.8-10.8)
[2019-10-20 05:35] LABS: ALBUMIN 1.6 g/dL (3.5-5.0); ASPARTATE AMINOTRANSFERASE 13 U/L (10-37); BILIRUBIN,TOTAL 0.4 mg/dL (0.2-1.0); CARBON DIOXIDE 24 mmol/L (21-32); CHLORIDE 102 mmol/L (101-111); CREATININE 1.3 mg/dL (0.5-1.5); GENTAMICIN,TROUGH 3.3 mcg/mL (0.0-2.0); GLOMERULAR FILTR. RATE CALC 60 mL/min (>60); GLUCOSE,RANDOM 143 mg/dL (70-105); POTASSIUM 3.3 mmol/L (3.5-5.1); SODIUM SERUM 137 mmol/L (136-145); TOTAL PROTEIN, SERUM 6.2 g/dL (6.0-8.3)
[2019-10-20 05:54] LABS: B-TYPE NATRIURETIC PEPTIDE 1010 pg/mL (0-100)
[2019-10-20] MEDS: METHYLPREDNISOLONE SOD SUCC 125MG/2ML VIAL IVP SCH ×3 (06:26→23:44)
[2019-10-20] MEDS: POTASSIUM CHLORIDE 20 MEQ ERTAB PO PRN ×3 (06:26→13:39)
[2019-10-20 06:30] LABS: AMMONIA < 10 umol/L (11-32)
[2019-10-20] MEDS: INSULIN HUMULIN R 100 UNIT/ML 3ML SQ SCH ×4 (06:32→20:41)
[2019-10-20 06:33] LABS: ALANINE AMINOTRANSFERASE 9 U/L (12-78); UREA NITROGEN, BLOOD 14 mg/dL (7-18)
[2019-10-20 08:00] VITALS: BP 160/90
[2019-10-20] MEDS: AMIODARONE HCL 200 MG TABLET PO SCH (08:41)
[2019-10-20] MEDS: VERAPAMIL HCL 240 MG SRTAB PO SCH (08:41)
[2019-10-20] MEDS: POTASSIUM CHLORIDE 10 MEQ/TAB.SA PO SCH (08:41)
[2019-10-20] MEDS: PANTOPRAZOLE SODIUM 40 MG TABLET.DR PO SCH (08:42)
[2019-10-20] MEDS: APIXABAN 5 MG TABLET PO SCH ×2 (08:43→20:13)
[2019-10-20] MEDS: FUROSEMIDE 20 MG TABLET PO SCH (08:43)
[2019-10-20] MEDS: CLOPIDOGREL BISULFATE 75 MG TAB PO SCH (08:43)
[2019-10-20] MEDS: METRONIDAZOLE 500 MG TABLET PO SCH ×3 (08:43→20:13)
[2019-10-20] MEDS: NICOTINE 21 MG/ 24 HR PATCH TD SCH (08:44)
[2019-10-20] MEDS: DORZOLAMIDE HCL 2% 10ML DROPS OU SCH (08:44)
[2019-10-20] MEDS: FLUTICASONE PROPIONATE 50MCG/SPRAY 16 GM BOTTLE EN SCH (08:44)
[2019-10-20 11:00] VITALS: BP 136/81
[2019-10-20 16:00] VITALS: BP 160/86
[2019-10-20 20:08] VITALS: BP 174/98
[2019-10-20] MEDS: FAMOTIDINE 20MG TAB 20 MG TAB PO SCH (20:13)
[2019-10-20] MEDS: GENTAMICIN 80 MG/NS 100 ML PB 100 ML IV SCH (20:15)
[2019-10-20] MEDS: LATANOPROST 2.5 ML DROPS OU SCH (20:15)
[2019-10-20] MEDS: ACETAMINOPHEN 325 MG TAB PO PRN (20:18)
[2019-10-20] MEDS: ZOLPIDEM TARTRATE 5 MG TAB PO PRN (20:41)
[2019-10-21 00:08] VITALS: BP 182/96
[2019-10-21] MEDS: NAFCILLIN 2GM+ NS 100ML 100 ML IV SCH ×6 (01:04→20:29)
[2019-10-21] MEDS ORDERED: HYDRALAZINE HCL 20 MG/ML VIAL IV PRN (03:00)
[2019-10-21] MEDS: METOPROLOL TARTRATE 25 MG TAB PO SCH ×3 (03:48→20:24)
[2019-10-21] MEDS: INSULIN HUMULIN R 100 UNIT/ML 3ML SQ SCH ×4 (05:56→20:24)
[2019-10-21] MEDS: METHYLPREDNISOLONE SOD SUCC 125MG/2ML VIAL IVP SCH ×2 (06:30→17:29)
[2019-10-21] MEDS: LEVOTHYROXINE 100 MCG TABLET PO SCH (06:30)
[2019-10-21 06:51] LABS: BASOPHILS % (AUTO) 0.1 % (0.0-5.0); HEMATOCRIT 28.8 % (42-54); MEAN CORPUSCULAR HEMOGLOBIN 32.6 pg (27.0-33.0); MEAN CORPUSCULAR VOLUME 95.7 fL (79-99); MONOCYTES % (AUTO) 3.9 % (3.0-13.0); NEUTROPHILS % (AUTO) 89.5 % (40.0-77.0); PLATELET COUNT (AUTO) 623 K/uL (130-400); RED BLOOD CELL COUNT(AUTO) 3.01 MIL/uL (4.50-6.20); RED CELL DISTRIBUTION WIDTH 17.4 % (11.0-15.5); WHITE BLOOD COUNT (AUTO) 13.7 K/uL (4.8-10.8)
[2019-10-21 07:19] LABS: ALBUMIN 1.7 g/dL (3.5-5.0); BILIRUBIN,TOTAL 0.4 mg/dL (0.2-1.0); CREATININE 1.6 mg/dL (0.5-1.5); POTASSIUM 3.3 mmol/L (3.5-5.1); TOTAL PROTEIN, SERUM 6.3 g/dL (6.0-8.3)
[2019-10-21 07:59] LABS: B-TYPE NATRIURETIC PEPTIDE 1190 pg/mL (0-100)
[2019-10-21 08:00] VITALS: BP 130/88
[2019-10-21] MEDS: GENTAMICIN 80 MG/NS 100 ML PB 100 ML IV SCH (08:13)
[2019-10-21] MEDS ORDERED: SECUKINUMAB 150 MG SQ SCH (09:00)
[2019-10-21] MEDS: PANTOPRAZOLE SODIUM 40 MG TABLET.DR PO SCH (09:18)
[2019-10-21] MEDS: NICOTINE 21 MG/ 24 HR PATCH TD SCH (09:18)
[2019-10-21] MEDS: VERAPAMIL HCL 240 MG SRTAB PO SCH (09:18)
[2019-10-21] MEDS: CLOPIDOGREL BISULFATE 75 MG TAB PO SCH (09:19)
[2019-10-21] MEDS: FUROSEMIDE 20 MG TABLET PO SCH (09:19)
[2019-10-21] MEDS: POTASSIUM CHLORIDE 10 MEQ/TAB.SA PO SCH (09:19)
[2019-10-21] MEDS: APIXABAN 5 MG TABLET PO SCH ×2 (09:20→20:24)
[2019-10-21] MEDS: HYDRALAZINE HCL 25 MG TABLET PO SCH ×2 (09:20→20:24)
[2019-10-21] MEDS: FLUTICASONE PROPIONATE 50MCG/SPRAY 16 GM BOTTLE EN SCH (09:30)
[2019-10-21] MEDS: AMIODARONE HCL 200 MG TABLET PO SCH (09:30)
[2019-10-21] MEDS: DORZOLAMIDE HCL 2% 10ML DROPS OU SCH (09:31)
[2019-10-21 11:00] VITALS: BP 128/83
[2019-10-21 16:00] VITALS: BP 150/89
[2019-10-21] MEDS: ACETAMINOPHEN 325 MG TAB PO PRN (17:35)
[2019-10-21 20:12] VITALS: BP 159/91
[2019-10-21] MEDS: FAMOTIDINE 20MG TAB 20 MG TAB PO SCH (20:24)
[2019-10-21] MEDS: LATANOPROST 2.5 ML DROPS OU SCH (20:25)
[2019-10-21] MEDS: ZOLPIDEM TARTRATE 5 MG TAB PO PRN (20:29)
[2019-10-22 00:20] VITALS: BP 158/90
[2019-10-22] MEDS: NAFCILLIN 2GM+ NS 100ML 100 ML IV SCH ×3 (00:32→08:45)
[2019-10-22] MEDS: METHYLPREDNISOLONE SOD SUCC 125MG/2ML VIAL IVP SCH ×3 (00:32→15:00)
[2019-10-22 04:20] VITALS: BP 161/94
[2019-10-22 05:23] LABS: BASOPHILS % (AUTO) 0.1 % (0.0-5.0); HEMATOCRIT 29.8 % (42-54); LYMPHOCYTES % (AUTO) 4.8 % (21.0-51.0); MEAN CORPUSCULAR HEMOGLOBIN 32.7 pg (27.0-33.0); MEAN CORPUSCULAR HGB CONC 33.6 g/dL (32.0-36.0); MEAN CORPUSCULAR VOLUME 97.4 fL (79-99); MONOCYTES % (AUTO) 2.5 % (3.0-13.0); NEUTROPHILS % (AUTO) 91.2 % (40.0-77.0); PLATELET COUNT (AUTO) 573 K/uL (130-400); RED BLOOD CELL COUNT(AUTO) 3.06 MIL/uL (4.50-6.20); RED CELL DISTRIBUTION WIDTH 17.9 % (11.0-15.5); WHITE BLOOD COUNT (AUTO) 10.4 K/uL (4.8-10.8)
[2019-10-22 05:44] LABS: ALBUMIN 1.6 g/dL (3.5-5.0); BILIRUBIN,TOTAL 0.4 mg/dL (0.2-1.0); CREATININE 1.5 mg/dL (0.5-1.5); MAGNESIUM 2.1 mg/dL (1.80-2.40); POTASSIUM 3.1 mmol/L (3.5-5.1); TOTAL PROTEIN, SERUM 5.7 g/dL (6.0-8.3)
[2019-10-22 05:45] LABS: B-TYPE NATRIURETIC PEPTIDE 1840 pg/mL (0-100)
[2019-10-22] MEDS: INSULIN HUMULIN R 100 UNIT/ML 3ML SQ SCH ×3 (06:04→16:15)
[2019-10-22] MEDS: POTASSIUM CHLORIDE 20 MEQ ERTAB PO PRN (06:04)
[2019-10-22] MEDS: LEVOTHYROXINE 100 MCG TABLET PO SCH (06:42)
[2019-10-22 08:14] VITALS: BP 157/95
[2019-10-22] MEDS: METOPROLOL TARTRATE 25 MG TAB PO SCH (08:46)
[2019-10-22] MEDS: AMIODARONE HCL 200 MG TABLET PO SCH (08:46)
[2019-10-22] MEDS: APIXABAN 5 MG TABLET PO SCH (08:46)
[2019-10-22] MEDS: HYDRALAZINE HCL 25 MG TABLET PO SCH (08:46)
[2019-10-22] MEDS: POTASSIUM CHLORIDE 10 MEQ/TAB.SA PO SCH (08:47)
[2019-10-22] MEDS: CLOPIDOGREL BISULFATE 75 MG TAB PO SCH (08:47)
[2019-10-22] MEDS: VERAPAMIL HCL 240 MG SRTAB PO SCH (08:47)
[2019-10-22] MEDS: PANTOPRAZOLE SODIUM 40 MG TABLET.DR PO SCH (08:47)
[2019-10-22] MEDS: FUROSEMIDE 20 MG TABLET PO SCH (08:48)
[2019-10-22] MEDS: NICOTINE 21 MG/ 24 HR PATCH TD SCH (08:55)
[2019-10-22] MEDS: FLUTICASONE PROPIONATE 50MCG/SPRAY 16 GM BOTTLE EN SCH (08:56)
[2019-10-22] MEDS: DORZOLAMIDE HCL 2% 10ML DROPS OU SCH (08:59)
--- NOTE | 2019-10-22 09:00 | NUR ---
ROUNDS DR TERESITA DE JESUS ADVICED ABOUT VICE PRESIDENT OF NURSING MICHELLE BIANCHI REQUESTING FOR HIM TO REVIEW PT MRA AND ARTERIAL DOPPLER. DR DE JESUS STATED THAT DR CANNON HAD ALREADY COMMENTED ON THOSE TESTS SINCE YESTERDAY. NO CHANGES TO POC. NO INTERVENTION NEEDED AT THIS TIME. PT NEEDS 4 WEEKS OF ANTIBIOTICS AND CONTINUE WITH THE SAME MEDICATIONS.
[2019-10-22] MEDS ORDERED: METO25 PO (11:03)
[2019-10-22] MEDS ORDERED: PANT40TA PO (11:03)
[2019-10-22] MEDS ORDERED: METH125V14 IVP (11:03)
--- NOTE | 2019-10-22 11:12 | NUR ---
DC PLAN SPOKE TO JAMARI AT [facility]. SAID AUTH CHECKING WITH INSURANCE TO SEE IF IT CAN BE EXTENDED OR IF WE NEED NEW AUTH. Addendum: 10/22/19 at 1113 by SHANDA HERCULES RN CM Amended: Links added.
[2019-10-22 11:37] VITALS: BP 145/90
--- NOTE | 2019-10-22 13:02 | NUR ---
TIFFANY KAUFFMAN CALLED SAID PATIENT OKAY TO TRANSFER. LET NURSE AND CHARGE NURSE KNOW. GAVE JAMARI NURSES NUMBER. SENT EMS FORM. STILL PENDING MOT AND MED REC TO BE DONE. NURSE AWARE. Addendum: 10/22/19 at 1307 by SHANDA HERCLUES RN CM Amended: Links added.
[2019-10-22 16:01] VITALS: BP 146/88
--- NOTE | 2019-10-22 16:45 | NUR ---
DISCHARGE PATIENT GIVEN DISCHARGE INSTRUCTIONS AND EDUCATION ON FOLLOW UP APPOINTMENTS AND NEW PRESCRIBED MEDICATIONS. PATIENT VERBALIZED UNDERSTANDING OF ALL EDUCATION GIVEN VIA TEACH BACK. NO CONCERNS VOICED. REPORT CALLED TO JORDAN TRACEY RN, AT [facility]. ALL QUESTIONS ANSWERED ACCORDINGLY. PATIENT WILL FOLLOW UP WITH YANELI SANCHEZ AND CARDIOLOGY. PICC LINE INTACT. PATIENT WAS TRANSFERRED BY EMS, NO DISTRESS NOTED UPON DISCHARGE. ALL BELONGINGS TAKEN WITH.
== END 2019-10-22 18:45 | DRG 871 ==
LOC: EDH 13:03 → EDHIP 18:49 → OBSVTOIN 18:49 → 3DH 10-11 01:01
PROVIDERS: ADMIT Internal Medicine Critical Care Medicine; ATTEND Internal Medicine Critical Care Medicine
PROC: 02HV33Z Insertion of Infusion Device into Superior Vena Cava, Percutaneous Approach (ICD-10-PCS; principal; 2019-10-13)
PROC: B548ZZA Ultrasonography of Superior Vena Cava, Guidance (ICD-10-PCS; 2019-10-13)
PROC: 0S9C3ZZ Drainage of Right Knee Joint, Percutaneous Approach (ICD-10-PCS; 2019-10-17)
DX: A41.01 Sepsis due to Methicillin susceptible Staphylococcus aureus (principal); I33.0 Acute and subacute infective endocarditis; I50.43 Acute on chronic combined systolic (congestive) and diastolic (congestive) heart failure; A09 Infectious gastroenteritis and colitis, unspecified; E87.1 Hypo-osmolality and hyponatremia; L03.116 Cellulitis of left lower limb; L03.114 Cellulitis of left upper limb; I07.9 Rheumatic tricuspid valve disease, unspecified; I48.0 Paroxysmal atrial fibrillation; E03.9 Hypothyroidism, unspecified; E11.51 Type 2 diabetes mellitus with diabetic peripheral angiopathy without gangrene; E66.01 Morbid (severe) obesity due to excess calories; I49.5 Sick sinus syndrome; M25.512 Pain in left shoulder; E78.5 Hyperlipidemia, unspecified; E87.6 Hypokalemia; F10.10 Alcohol abuse, uncomplicated; F17.210 Nicotine dependence, cigarettes, uncomplicated; G47.33 Obstructive sleep apnea (adult) (pediatric); I07.1 Rheumatic tricuspid insufficiency; I11.0 Hypertensive heart disease with heart failure; I25.10 Atherosclerotic heart disease of native coronary artery without angina pectoris; M75.100 Unspecified rotator cuff tear or rupture of unspecified shoulder, not specified as traumatic; I45.9 Conduction disorder, unspecified; I25.5 Ischemic cardiomyopathy; Z03.818 Encounter for observation for suspected exposure to other biological agents ruled out; Z68.29 Body mass index [BMI] 29.0-29.9, adult; Z95.5 Presence of coronary angioplasty implant and graft; Z95.1 Presence of aortocoronary bypass graft; Z95.0 Presence of cardiac pacemaker; Z86.73 Personal history of transient ischemic attack (TIA), and cerebral infarction without residual deficits; Z79.2 Long term (current) use of antibiotics; Z79.01 Long term (current) use of anticoagulants
CPT/HCPCS: 36415; 70450; 70548; 71045; 73030; 73060; 73200; 73221; 73560; 74176; 80048; 80053; 80076; 80170; 81001; 82140; 82270; 82550; 82728; 82948; 83605; 83615; 83630; 83690; 83735; 83880; 84100; 84132; 84145; 84439; 84443; 84484; 85025; 85027; 85378; 85610; 85730; 86140; 87040; 87046; 87071; 87077; 87177; 87186; 87205; 87324; 87633; 87635; 87804; 87880; 89051; 89060; 93005; 93306; 93356; 93931; 93970; 93971; 97039; A9579; C1894; G0378; J0360; J0696; J1580; J1815; J1956; J2060; J2930; J3370; J3475; J3480; J3490; J7050

== ENCOUNTER → 2020-03-11 | Outpatient (CLI) | payer OTHER, MEDICARE ==
[~2020-03-11] MED LIST changes: +AMIO200T6 PO; +APIX5TAB PO; -ASPI-891 PO; -CARV3.12 PO; -CLOP75TA14 PO; +CLOP75TA32 PO; +DORZ10DR19 OU; +FAMO40TA7 PO; +FURO40TA5 PO; -GABA-531 PO; -HYDR-4153 PO; +LATA2.5D2 OU; +LEVO100 PO; -LEVO150T11 PO; -LISI-613 PO; +METH125V14 IVP; +METO25 PO; -OMEG300C3 PO; +PANT40TA PO; +POTA10TA19 PO; -ROSU10TA22 PO; +SECU150S2 SQ; +VERA240C3 PO
== END | disposition home or self-care (01) ==
LOC: SHCH 13:38
PROVIDERS: ATTEND Internal Medicine Cardiovascular Disease
DX: I65.23 Occlusion and stenosis of bilateral carotid arteries (principal)
CPT/HCPCS: 93880

== ENCOUNTER → 2020-11-21 | Outpatient (CLI) | payer OTHER, MEDICARE ==
[~2020-11-21] MED LIST changes: +LATA2.5D14 OU; -LATA2.5D2 OU
== END | disposition home or self-care (01) ==
LOC: RAH 15:03
PROVIDERS: ATTEND Internal Medicine Cardiovascular Disease
DX: I65.23 Occlusion and stenosis of bilateral carotid arteries (principal); I70.291 Other atherosclerosis of native arteries of extremities, right leg; M79.605 Pain in left leg
CPT/HCPCS: 93925; 93970

== ENCOUNTER → 2020-12-25 | Outpatient (CLI) | payer OTHER, MEDICARE ==
[~2020-12-25] MED LIST changes: +IOHEXOL-350 50ML VIAL IV ONE
== END | disposition home or self-care (01) ==
LOC: RAH 09:20
PROVIDERS: ATTEND Internal Medicine Cardiovascular Disease
DX: I70.203 Unspecified atherosclerosis of native arteries of extremities, bilateral legs (principal); I25.10 Atherosclerotic heart disease of native coronary artery without angina pectoris; I11.9 Hypertensive heart disease without heart failure; K57.30 Diverticulosis of large intestine without perforation or abscess without bleeding; K44.9 Diaphragmatic hernia without obstruction or gangrene; I70.8 Atherosclerosis of other arteries; I70.1 Atherosclerosis of renal artery; Z95.820 Peripheral vascular angioplasty status with implants and grafts
CPT/HCPCS: 75635; Q9967